=== PATIENT | female | born 1950 | race Caucasian/White ===

== ENCOUNTER 2021-10-28 09:24 | Emergency (ER) | payer MEDICARE, OTHER ==
--- NOTE | 2021-10-28 09:37 | ED Physician Documentation ---
PD HPI UPPER EXT INJURY - Stated complaint Stated Complaint: RT ARM SWELLING/PX - History obtained from History obtained from: Patient - History of Present Illness Location: Right, Shoulder Type of injury: Other (was doing some lifting but not heavy. NOted pain onset and persist with lifting and forward reaching. Pain anterior right shoulder. Feels clicking type feeling with some flexion/movement.). No: Fall, Twist Where injury occurred: Home Timing - onset: How many days ago (10) Timing - duration: Days (10) Timing - details: Gradual onset, Still present Worsened by: Moving, Palpating (anterior shoulder and upper anterior upper arm.) Associated symptoms: Weakness (for flexion mostly.). No: Numbness, Swelling (but a feeling of a lump in anterior shoulder.) Similar symptoms before: Has not had sx before Recently seen: Not recently seen Review of Systems Constitutional: denies: Fever, Chills Cardiac: reports: Chest pain / pressure (pain does transmit to right pectoral area with movement at times.) Skin: denies: Rash, Lesions Musculoskeletal: denies: Neck pain, Back pain Neurologic: denies: Generalized weakness, Numbness PD PAST MEDICAL HISTORY - Past Medical History Cardiovascular: Hypertension Respiratory: None Endocrine/Autoimmune: None - Present Medications Home Medications: Ambulatory Orders Medication Instructions Recorded Confirmed HYDROcod/ACETAM 5/325 [Mousie 5/325] 1 ea PO Q6H PRN #10 tablet 10/28/21 Naproxen 250 mg PO BID 7 Days #15 tablet 10/28/21 - Allergies Allergies/Adverse Reactions: Allergies Allergy/AdvReac Type Severity Reaction Status Date / Time erythromycin base Allergy Unknown Verified 10/28/21 09:40 - Living Situation Living Situation: reports: With spouse/s.o. Living Arrangement: reports: At home - Social History Does the pt smoke?: No PD ED PE NORMAL - Vitals Vital signs reviewed: Yes - General General: Alert and oriented X 3, No acute distress, Well developed/nourished - Neck Neck: Supple, no meningeal sign, No bony TTP, No adenopathy - Cardiac Cardiac: RRR, No murmur - Respiratory Respiratory: No respiratory distress, Clear bilaterally - Abdomen Abdomen: Soft, Non tender - Derm Derm: Normal color, Warm and dry, No rash - Extremities Extremities: Other (anterior right shoulder with tendernessthat extends to upper part of biceps lateral head. There is a softness in the upper biceps laterally and feeling of fluid/swelling mid portion of it about third way down, possible hematoma. Able to flex at elbow but with moderate pain upper arm/shoulder area. ) Results - Vitals Vitals: Oxygen O2 Source Room air - Labs Labs: Laboratory Tests 10/28/21 10/28/21 10/28/21 10:08 10:08 10:08 WBC 5.0 RBC 4.31 Hgb 12.6 Hct 39.8 MCV 92.3 MCH 29.2 MCHC 31.7 L RDW 12.3 Plt Count 181 MPV 9.7 Neut # (Auto) 2.8 Lymph # (Auto) 1.6 Bartholomew # (Auto) 0.4 Eos # (Auto) 0.1 Baso # (Auto) 0.1 Absolute Nucleated RBC 0.00 Nucleated RBC % 0.0 Sodium 143 Potassium 4.1 Chloride 101 Carbon Dioxide 32 Anion Gap 10.0 BUN 10 Creatinine 0.7 Estimated GFR (MDRD) 82 L Glucose 130 H Calcium 9.8 Total Bilirubin 0.7 AST 23 ALT 18 Alkaline Phosphatase 72 Troponin I High Sens 4.5 Total Protein 7.3 Albumin 4.2 Globulin 3.1 Albumin/Globulin Ratio 1.4 Lipase 37 - Rads (name of study) shoulder xray Radiology: Prelim report reviewed (arthritic changes, no fractures), See rad report duplex right upper arm Radiology: Prelim report reviewed (no DVT. There is fluid collection upper humeral area c/w hematoma. ), See rad report PD MEDICAL DECISION MAKING - ED course Complexity details: considered differential (clinically sounds like partial tear of biceps muscle. Does not seem disrupted from head insertion. LIkely some hematoma in soft tissue. Still able to flex forearm. ), d/w patient Departure - Departure Disposition: 01 Home, Self Care Clinical Impression: Partial degenerative rupture of right biceps tendon Right shoulder pain Qualifiers: Chronicity: acute Qualified Code(s): M25.511 - Pain in right shoulder Condition: Stable Record reviewed to determine appropriate education?: Yes Instructions: ED Strain Muscle Ext Follow-Up: Dajuan Webb MD [Provider Admit Priv/Credential] - Baron Treviño MD [Primary Care Provider] - Prescriptions: Naproxen 250 mg PO BID 7 Days #15 tablet HYDROcod/ACETAM 5/325 [Mousie 5/325] 1 ea PO Q6H PRN #10 tablet PRN Reason: Pain Comments: It seems like you have a partial tear of your likely biceps tendon which is causing your pain in the movement of the tendon is the snapping feeling. Use the sling to rest the shoulder much of the time through the day. Its okay to use your arm lightly and have gentle range of motion. No overhead reaching, push pull, lifting with that arm until follow-up. Follow-up with orthopedics, call for an appointment for a week or so from now to see how well its improving. In addition to less use of the shoulder and resting it in the sling through the day, also use naproxen anti-inflammatory twice daily with food. To that add Tylenol every 6 hours if needed for pain or hydrocodone if needed for worse pain. I transmitted your prescriptions to [facility] pharmacy in [place]. I am prescribing a short course of narcotic pain medication for you. These are potentially dangerous and addictive medications that should be used carefully. These medications may constipate you. Take an [id number] stool softener such as docusate twice daily with plenty of water while taking these medications. If you go 24 hours without a bowel movement, take [id number] MiraLAX, per package instructions. Do not drink or drive while taking these medications. If you received narcotic or sedating medications while in the emergency department do not drive for 24 hours. Store this medication in a safe, secure place and out of reach of children. It is a violation of federal law to give or sell this medication to another person or to use in a manner other than prescribed. The ED will not refill narcotic prescriptions, including prescriptions lost or stolen. You can dispose of unwanted medications at the [facility]'s office or at several pharmacies such as [email or web address]. Discharge Date/Time: 10/28/21 11:53
[2021-10-28] MEDS ORDERED: NAPROXEN 250 MG TABLET PO STA (09:55)
[2021-10-28] MEDS ORDERED: ACETAMINOPHEN 325 MG TABLET PO STA (09:55)
[2021-10-28 10:13] LABS: BASOPHILS # (AUTO) 0.1 10^3/uL (0.0-0.1); EOSINOPHILS # (AUTO) 0.1 10^3/uL (0.0-0.7); EOSINOPHILS % (AUTO) 1.6 %; HCT - HEMATOCRIT 39.8 % (37.0-47.0); HGB - HEMOGLOBIN 12.6 g/dL (12.0-16.0); LYMPHOCYTES # (AUTO) 1.6 10^3/uL (1.5-3.5); LYMPHOCYTES % (AUTO) 32.2 %; MEAN CORPUSCULAR HEMOGLOBIN 29.2 pg (27.0-31.0); MEAN CORPUSCULAR HGB CONC 31.7 g/dL (32.0-36.0); MEAN CORPUSCULAR VOLUME 92.3 fL (81.0-99.0); MEAN PLATELET VOLUME 9.7 fL (7.9-10.8); MONOCYTES # (AUTO) 0.4 10^3/uL (0.0-1.0); MONOCYTES % (AUTO) 8.7 %; NEUTROPHILS # (AUTO) 2.8 10^3/uL (1.5-6.6); NEUTROPHILS % (AUTO) 56.3 %; PLT - PLATELET COUNT 181 10^3/uL (130-450); RED BLOOD COUNT 4.31 10^6/uL (4.20-5.40); RED CELL DISTRIBUTION WIDTH 12.3 % (12.0-15.0)
--- NOTE | 2021-10-28 10:13 | XRAY Report ---
PROCEDURE: Shoulder 3 View RT INDICATIONS: right shoulder/upper arm pain TECHNIQUE: 3 views of the shoulder were acquired. COMPARISON: None. FINDINGS: No fracture or dislocation. Somewhat high riding humeral head is suggestive of chronic rotator cuff t ear. Moderate arthritic changes of the acromioclavicular joint. Mild osteoarthritic changes of the gl enohumeral joint with joint space narrowing and marginal osteophytosis. Small calcification at the in sertion of the supraspinatus tendon. IMPRESSION: No acute finding. Subjectively high riding humeral head suggestive of chronic rotator cuff tear, with ossification at t he supraspinatus insertion indicative of chronic tendinitis/tendinosis. Mild glenohumeral and moderate acromioclavicular arthritic changes. Reviewed by: Lokesh Arredondo MD on 10/28/2021 10:12 AM PST Approved by: Lokesh Arredondo MD on 10/28/2021 10:12 AM PST Station ID: [id number]
[2021-10-28 10:29] LABS: ALBUMIN 4.2 g/dL (3.2-5.5); ALBUMIN/GLOBULIN RATIO 1.4 (1.0-2.2); BILIRUBIN,TOTAL 0.7 mg/dL (0.2-1.0); CALCIUM 9.8 mg/dL (8.5-10.3); CREATININE 0.7 mg/dL (0.4-1.0); POTASSIUM 4.1 mmol/L (3.5-5.0); TOTAL PROTEIN 7.3 g/dL (6.7-8.2)
--- NOTE | 2021-10-28 11:15 | Ultrasound Report ---
PROCEDURE: Duplex Ext Veins Right INDICATIONS: right upper arm pain and swelling TECHNIQUE: Real-time imaging, as well as color and pulse Doppler interrogation, were performed of the lower extr emity deep veins from the inguinal ligament to the popliteal fossa. COMPARISON: None. FINDINGS: The deep veins are normally compressible, and free of intraluminal thrombus. Color and pu lse Doppler demonstrate normal phasic intraluminal flow. There is normal augmentation response to di stal compression maneuver. There is incidental note of mild fluid at the region of the rotator cuff. IMPRESSION: No deep venous thrombosis. Mild fluid at the region of the rotator cuff. Tendinitis/sprain versus partial tear cannot be exclude d. If clinically appropriate, MRI shoulder may be obtained for further evaluation. Reviewed by: Shonda Yeung MD on 10/28/2021 11:14 AM PST Approved by: Shonda Yeung MD on 10/28/2021 11:14 AM PST Station ID: [id number]
[2021-10-28 11:41] VITALS: BP 190/93
== END 2021-10-28 11:53 | disposition home or self-care (01) ==
LOC: ED 09:24
DX: M66.211 Spontaneous rupture of extensor tendons, right shoulder (principal)
CPT/HCPCS: 36415; 73030; 80053; 83690; 84484; 85025; 93005; 93971; 99284; A9270

== ENCOUNTER 2021-12-05 08:59 | Outpatient (CLI) | payer MEDICARE ==
--- NOTE | 2021-12-05 13:01 | XRAY Report ---
PROCEDURE: Humerus RT INDICATIONS: RIGHT ARM STRAIN TECHNIQUE: 2 views of the humerus were acquired. COMPARISON: None FINDINGS: Bones: No fractures or dislocations. No suspicious bony lesions. Soft tissues: No suspicious soft tissue calcifications. IMPRESSION: Normal right humerus radiographs Reviewed by: Conrado Santizo MD on 12/05/2021 11:59 AM [facility] Approved by: Conrado Santizo MD on 12/05/2021 11:59 AM [facility] Station ID: [id number]
--- NOTE | 2021-12-05 13:03 | XRAY Report ---
PROCEDURE: Cervical Spine 2 View INDICATIONS: NECK PAIN TECHNIQUE: 3 view(s) of the cervical spine were acquired. COMPARISON: None. FINDINGS: Bones: No fractures or dislocations to the T1 level. The lateral masses of C1 appear intact on the odontoid view. No suspicious bony lesions. Disc space narrowing and anterior aspects noted in the l ower cervical spine. Sclerotic facet joints present in the mid cervical spine. Craniovertebral relati onships are normal. Surgical clips noted in the left neck Soft tissues: No prevertebral soft tissue swelling. IMPRESSION: Moderate degenerative disc disease and arthropathy without fracture or malalignment. Reviewed by: Conrado Satnizo MD on 12/05/2021 12:01 PM [facility] Approved by: Conrado Santizo MD on 12/05/2021 12:01 PM [facility] Station ID: [id number]
== END 2021-12-05 09:00 | disposition home or self-care (01) ==
LOC: DI.WOS 08:59
PROVIDERS: ATTEND Orthopaedic Surgery
DX: S46.211A Strain of muscle, fascia and tendon of other parts of biceps, right arm, initial encounter (principal); M47.812 Spondylosis without myelopathy or radiculopathy, cervical region; M50.30 Other cervical disc degeneration, unspecified cervical region

== ENCOUNTER 2022-02-10 07:04 | Outpatient (CLI) | payer MEDICARE ==
--- NOTE | 2022-02-10 11:17 | MRI Report ---
PROCEDURE: Shoulder RT W/O INDICATIONS: RIGHT ROTATOR CUFF TEAR TECHNIQUE: Noncontrast oblique coronal T2 fast spin echo with fat saturation, oblique sagittal T1 spin echo and T2 fast spin echo with fat saturation, axial T1 spin echo and T2 fast spin echo with fat saturation t hrough the shoulder. COMPARISON: Reference is made to the shoulder radiograph dated October 28, 2021. Findings: Supraspinatus: Mild to moderate tendinopathy with small partial bursal surface and interstitial tears . Infraspinatus: Mild tendinopathy with small partial articular surface tear. Subscapularis: No evidence of tear. Teres minor: No evidence of tear. Labrum: Deficiency of the posterior labrum, which may reflect degenerative change/tear. Biceps tendon: No evidence of subluxation or tear. Acromioclavicular joint: Normal alignment. Mild to moderate arthrosis. Muscle: No significant atrophy. Bones: No significant abnormality. Specifically, no evidence of fracture, contusion, or necrosis. Miscellaneous: Small glenohumeral joint effusion. Trace subacromial/subdeltoid bursal fluid. No intra-articular bodies. Intact coracoclavicular ligament. IMPRESSION: 1. Mild to moderate supraspinatus tendinopathy with small partial bursal surface and interstitial tea rs. 2. Mild infraspinatus tendinopathy with small partial articular surface tear. 3. Deficiency of the posterior labrum, which may reflect degenerative change/tear. 4. Mild subacromial/subdeltoid bursitis. 5. Small glenohumeral joint effusion. Reviewed by: Art Barbosa MD on 02/10/2022 11:15 AM PDT Approved by: Art Barbosa MD on 02/10/2022 11:15 AM PDT Station ID: [id number]
== END 2022-02-10 07:05 | disposition home or self-care (01) ==
LOC: DI 07:04
PROVIDERS: ATTEND Orthopaedic Surgery
DX: M75.101 Unspecified rotator cuff tear or rupture of right shoulder, not specified as traumatic (principal); M75.51 Bursitis of right shoulder; M25.411 Effusion, right shoulder

== ENCOUNTER 2022-02-17 10:20 | Emergency (ER) | payer MEDICARE ==
[2022-02-17 10:51] LABS: BASOPHILS # (AUTO) 0.1 10^3/uL (0.0-0.1); EOSINOPHILS # (AUTO) 0.1 10^3/uL (0.0-0.7); EOSINOPHILS % (AUTO) 1.6 %; HCT - HEMATOCRIT 38.2 % (37.0-47.0); HGB - HEMOGLOBIN 12.7 g/dL (12.0-16.0); LYMPHOCYTES # (AUTO) 1.9 10^3/uL (1.5-3.5); LYMPHOCYTES % (AUTO) 28.4 %; MEAN CORPUSCULAR HEMOGLOBIN 30.7 pg (27.0-31.0); MEAN CORPUSCULAR HGB CONC 33.2 g/dL (32.0-36.0); MEAN CORPUSCULAR VOLUME 92.3 fL (81.0-99.0); MEAN PLATELET VOLUME 9.7 fL (7.9-10.8); MONOCYTES # (AUTO) 0.5 10^3/uL (0.0-1.0); NEUTROPHILS # (AUTO) 4.2 10^3/uL (1.5-6.6); NEUTROPHILS % (AUTO) 61.7 %; PLT - PLATELET COUNT 207 10^3/uL (130-450); RED BLOOD COUNT 4.14 10^6/uL (4.20-5.40); RED CELL DISTRIBUTION WIDTH 12.6 % (12.0-15.0); WHITE BLOOD COUNT 6.8 x10^3/uL (4.8-10.8)
--- NOTE | 2022-02-17 11:00 | XRAY Report ---
PROCEDURE: Chest 1 View X-Ray INDICATIONS: Chest Pain TECHNIQUE: One view of the chest was acquired. COMPARISON: None. FINDINGS: Surgical changes and devices: None. Lungs and pleura: No pleural effusions or pneumothorax. Lungs are clear. Mediastinum: Mediastinal contours appear normal. Heart size is normal. Bones and chest wall: No suspicious bony lesions. Overlying soft tissues appear unremarkable. IMPRESSION: No acute cardiopulmonary pathology. Reviewed by: Ga Aguirre MD on 02/17/2022 10:59 AM PDT Approved by: Ga Aguirre MD on 02/17/2022 10:59 AM PDT Station ID: [id number]
[2022-02-17 11:11] LABS: ALBUMIN 4.3 g/dL (3.2-5.5); ALBUMIN/GLOBULIN RATIO 1.3 (1.0-2.2); BILIRUBIN,TOTAL 0.7 mg/dL (0.2-1.0); CALCIUM 9.4 mg/dL (8.5-10.3); CREATININE 0.5 mg/dL (0.4-1.0); TOTAL PROTEIN 7.5 g/dL (6.7-8.2)
--- OUTSIDE RECORDS SUMMARY | 2022-02-17 11:41 | EXTERNAL MEDICAL SUMMARY RPT | Continuity of Care Document ---
:1950 Author Organization [facility] Address [address] [place] [address] Phone Care Team Providers Name Role Phone MD Unavailable Unavailable RN Unavailable Unavailable Allergies No information. Encounters No information. Medications No information. Problems date description facility 20220121 Unspecified rotator cuff tear or rupture of right shoulder, not All specified as traumatic 20220121 Rotator cuff (capsule) sprain All 20220121 MRI SHOULDER WO - RT All 20220121 Disorder of rotator cuff All 20211205 XR CERVICAL SPINE 2 OR 3 VIEW All 20211205 Other cervical disc degeneration, unspe cified cervical region All 20211205 Depo-Medrol 80mg/ml All 20211205 Degeneration of cervical intervertebral disc All 20211205 Calcific tendinitis of right shoulder All 20211204 XR HUMERUS 2 VIEW All Procedures date description facility 20220121 MRI SHOULDER WO - RT All 20211205 Major Joint Injection All 20211205 XR CERVICAL SPINE 2 OR 3 VIEW All 20211205 Major Joint Injection All 20211204 XR HUMERUS 2 VIEW All Results No information.
[2022-02-17] MEDS ORDERED: lisinopriL 5 MG TABLET PO STA (12:02)
--- NOTE | 2022-02-17 12:13 | ED Physician Documentation ---
History of Present Illness - Stated complaint Stated Complaint: HIGH BLOOD PRESSURE - Chief complaint Chief Complaint: Cardiac - History obtained from History obtained from: Patient - Additonal information Additional information: Patient comes to the emergency department with chief complaint of elevated blood pressure and throbbing sense of head pressure. Patient states that she has a history of hypertension, and used to be on lisinopril, but her primary doctor stopped her medication about 8 years ago, stating that she did not need it any longer. She does still occasionally follow with primary care, though she does admit she has been very busy taking care of her elderly, ill mother and has not been taking care of herself very well lately. The patient states she is just felt generally tired but has not had any chest pain. She will occasionally have nausea though not in connection with her other symptoms. Patient states that she was told that her blood pressure was high and she should come to the emergency department to get "checked out". No other complaints at this time. Review of Systems Ten Systems: 10 systems reviewed and negative Constitutional: reports: Reviewed and negative Eyes: reports: Reviewed and negative Ears: reports: Reviewed and negative Nose: reports: Reviewed and negative Throat: reports: Reviewed and negative Cardiac: reports: Reviewed and negative Respiratory: reports: Reviewed and negative GI: reports: Reviewed and negative : reports: Reviewed and negative Skin: reports: Reviewed and negative Musculoskeletal: reports: Reviewed and negative Neurologic: reports: Headache Psychiatric: reports: Reviewed and negative Endocrine: reports: Reviewed and negative Immunocompromised: reports: Reviewed and negative PD PAST MEDICAL HISTORY - Past Medical History Cardiovascular: Hypertension Respiratory: None Endocrine/Autoimmune: None - Present Medications Home Medications: Ambulatory Orders Medication Instructions Recorded Confirmed Atorvastatin [Lipitor] 20 mg ORAL HS 02/17/22 02/17/22 Brexpiprazole [Rexulti] 1 mg ORAL DAILY 02/17/22 02/17/22 Fluoxetine HCl [Prozac] 20 mg PO DAILY 02/17/22 02/17/22 Gabapentin [Neurontin] 600 mg PO BID 02/17/22 02/17/22 Lisinopril [Zestril] 40 mg PO BID #60 tablet 02/17/22 metFORMIN [Glucophage] 500 mg PO DAILY 02/17/22 02/17/22 traZODone [Desyrel] 100 mg PO HS 02/17/22 02/17/22 - Allergies Allergies/Adverse Reactions: Allergies Allergy/AdvReac Type Severity Reaction Status Date / Time erythromycin base Allergy Unknown Verified 02/17/22 10:23 - Social History Does the pt smoke?: No Smoking Status: Never smoker PD ED PE NORMAL - Vitals Vital signs reviewed: Yes - General General: Alert and oriented X 3, No acute distress, Well developed/nourished - HEENT HEENT: Atraumatic, PERRL, EOMI, Moist mucous membranes - Neck Neck: Supple, no meningeal sign - Cardiac Cardiac: RRR, No murmur, Strong equal pulses - Respiratory Respiratory: No respiratory distress, Clear bilaterally - Abdomen Abdomen: Soft, Non tender, Non distended - Derm Derm: Normal color, Warm and dry, No rash - Extremities Extremities: No deformity - Neuro Neuro: Alert and oriented X 3, Other (Right 7th cranial nerve deficit.) - Psych Psych: Normal mood, Normal affect Results - Vitals Vitals: Vital Signs - 24 hr 02/17/22 10:23 Temperature 36.4 C L Heart Rate 57 L Respiratory 18 Rate Blood Pressure 176/87 H O2 Saturation 100 Oxygen O2 Source Room air - Labs Labs: Laboratory Tests 02/17/22 02/17/22 02/17/22 10:46 10:46 10:46 WBC 6.8 RBC 4.14 L Hgb 12.7 Hct 38.2 MCV 92.3 MCH 30.7 MCHC 33.2 RDW 12.6 Plt Count 207 MPV 9.7 Neut # (Auto) 4.2 Lymph # (Auto) 1.9 Lincoln # (Auto) 0.5 Eos # (Auto) 0.1 Baso # (Auto) 0.1 Absolute Nucleated RBC 0.00 Nucleated RBC % 0.0 Sodium 138 Potassium 3.0 L Chloride 99 L Carbon Dioxide 28 Anion Gap 11.0 BUN 10 Creatinine 0.5 Estimated GFR (MDRD) 121 Glucose 115 H Calcium 9.4 Total Bilirubin 0.7 AST 22 ALT 18 Alkaline Phosphatase 65 Troponin I High Sens 4.3 Total Protein 7.5 Albumin 4.3 Globulin 3.2 Albumin/Globulin Ratio 1.3 Lipase 46 PD MEDICAL DECISION MAKING - ED course Complexity details: reviewed results, re-evaluated patient, considered differential, d/w patient ED course: The patient did not have any acute findings. Her blood pressure was elevated in the 180s over 90s and I feel she should be started back on antihypertensives. She was given lisinopril 40 mg p.o. in the emergency department. She did not have any emergent symptoms or findings. 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 The patient's laboratory studies, chest x-ray, and EKG all looked good. I discussed with her that she needs to follow-up with her primary care physician to determine a long-term antihypertensive regimen. We have discussed the usual indications for return. Departure - Departure Disposition: Home, Self Care Clinical Impression: Uncontrolled hypertension Condition: Stable Instructions: ED Hypertension Conf Out Of Control Prescriptions: Lisinopril [Zestril] 40 mg PO BID #60 tablet Comments: You have been restarted on lisinopril today. It is very important that you follow-up with your primary doctor, as your doctor may determine that a different medication would be a better choice for you. Please make the soonest possible appointment for follow-up. In the meantime, you may resume lisinopril as prescribed. Please be sure you were taking care of yourself in other ways, including eating nutritious food, getting plenty of sleep, and drinking plenty of water. Your labs, x-ray, and EKG all look good today.
[2022-02-17 12:29] VITALS: BP 211/93
== END 2022-02-17 12:35 | disposition home or self-care (01) ==
LOC: ED 10:20
DX: I10 Essential (primary) hypertension (principal)
CPT/HCPCS: 36415; 71045; 80053; 83690; 84484; 85025; 93005; 99283; 99284; A9270